=== PATIENT | male | born 1955 | race Caucasian/White ===

== ENCOUNTER 2019-01-07 07:04 | Inpatient (IN) | payer BC ==
[2019-01-07] VITALS (18 sets, daily range): BP systolic 112–172; BP diastolic 59–114
[~2019-01-07] VITALS: Ht 170.2 cm; Wt 105.9 kg
[~2019-01-07 07:04] MED LIST: FAMVIR500 MG OR; LISINOPRIL10 MG PO; LORTAB 5 OR; PRAVASTATIN20 MG OR; PROTONIX40 M2 OR
--- NOTE | 2019-01-07 07:05 | NUR ---
TO TX ROOM VIA W/C
--- NOTE | 2019-01-07 07:31 | NUR ---
PT MEDICATED WITH LABETALOL PER ORDER. PT BP 182/126, HR 116 SINUS TACH. PT DENIES ANY CHEST PAIN AT THIS TIME. PT AND AWARE OF PLAN OF CARE AND WAIT TIME. CALL GLASS WITHIN REACH.
[2019-01-07 07:32] LABS: HEMATOCRIT 46.3 % (39.0-50.0); HEMOGLOBIN 15.3 g/dl (14.0-18.0); IMMATURE GRANULOCYTES 0.7 % (0.0-5.0); MEAN CELL VOLUME 86.7 fL CALC (80.0-100.0); MEAN CORPUSCULAR HGB 28.7 pG CALC (26.0-32.0); NEUT# 6.79 thou/uL (1.82-7.42); RED BLOOD COUNT 5.34 mill/uL (4.70-6.10); RED CELL DISTRI WIDTH 14.4 % (11.5-15.5)
--- NOTE | 2019-01-07 07:37 | NUR ---
BP 153/98 AFTER MEDICATION. PT DENIES ANY SOB AT THIS TIME. BED PLACED IN SEMI-FOWLERS PER PT REQUEST.
[2019-01-07 07:42] LABS: ANION GAP 14 (6-22 (CALC)); BUN 27 mg/dL (8-23); BUN/CREATININE RATIO 21 (12-20 (CALC)); CARBON DIOXIDE 22 mmol/l (22-30); CHLORIDE 107 mmol/l (95-108); CREATININE 1.3 mg/dL (0.7-1.3); GFR 56 ML/MIN (>=60 (CALC)); GFR FOR AFR.AMER. > 60 ML/MIN (>=60 (CALC)); SODIUM 139 mmol/l (137-146)
[2019-01-07 07:43] LABS: POTASSIUM 3.9 mmol/l (3.5-5.1)
--- NOTE | 2019-01-07 08:20 | NUR ---
PT RESTING COMFORTABLY IN STRETCHER, RR 24 AT REST. PT REMAINS HYPERTENSIVE. AWARE.
--- NOTE | 2019-01-07 08:50 | NUR ---
PT REQUESTED TO AMBULATED TO THE BATHROOM FOR BM. PT AMBULATED WITH A STEADY GAIT. PT RR 28 AT THIS TIME, SAO2 97% ON ROOM AIR. URINE SAMPLE COLLECTED.
--- NOTE | 2019-01-07 09:00 | NUR ---
MD AT BEDSIDE TO DISCUSS RESULTS AND PLAN FOR ADMISSION.
--- NOTE | 2019-01-07 09:48 | NUR ---
NITRO TITRATED TO 10 MCG. PT DENIES ANY PAIN OR SOB AT THIS TIME.
[2019-01-07 09:54] LABS: URINE BLOOD DIPSTICK SMALL (NEGATIVE); URINE COLOR YELLOW; URINE GLUCOSE - DIPSTICK NEGATIVE (NEGATIVE); URINE KETONE NEGATIVE (NEGATIVE); URINE LEUK ESTERASE NEGATIVE (Negative); URINE NITRITE - DIPSTICK NEGATIVE (Negative); URINE PH 5.5 (4.5-8.0); URINE PROTEIN - DIPSTICK 100 mg/dL (NEG-TRACE); URINE SPECIFIC GRAVITY >=1.030
[2019-01-07 10:03] LABS: URINE BILIRUBIN - DIPSTICK SMALL (NEGATIVE); URINE CLARITY CLEAR
--- NOTE | 2019-01-07 10:05 | NUR ---
REPORT TO [facility].
--- NOTE | 2019-01-07 10:10 | NUR ---
PT REQUESTED TO TO TAKE PANTS AND SHOES OFF ONCE HE IS UPSTAIRS IN HIS ROOM.
--- NOTE | 2019-01-07 10:18 | NUR ---
Admission Note Report Given to: [facility] Transported by: Wheelchair X Stretcher Transported with: X Nurse Transporter X Patent IV O2 X Portable Canteen Operator PT TO ICU 4 IN STABLE CONDITION. CARE RELINQUISHED TO [facility].
--- NOTE | 2019-01-07 10:30 | NUR ---
PT ADMITTED TO ICU BED 6 VIA STRETCHER, PT STOOD AND TRANSFERRED SELF TO BED, PT ALERT AND ORIENTED AND AMBULATES WITH STRONG STEADU GAIT, RADIOLOGY AT BEDSIDE TO TAKE PT FOR CT THORAX ORDERED. VS OBTAINED THEN PT TO RADIOLOGY VIA WHEELCHAIR.
--- NOTE | 2019-01-07 10:45 | NUR ---
PT BACK FROM RADIOLOGY INTO BED WITH SAME STEADY GAIT, ADMISSION ASSESSMENT COMPLETED; SEE INTERVENTIONS, LUNGS CLEAR DIMINSHED IN BASES, EXERTIONAL DYSPNEA NOTED PT STATES HAS BEEN WORSENING OVER LAST FEW WEEKS, TRACED EDEMA NOTED TO BILATERAL ANKLES, ABD SOFT BS ACTIVE LAST BM THIS AM PER PT, SKIN WARM, DRY AND INTACT WITH NO BREAKDOWN NOTED, 20G IV ACCESS INTACT IN R AC WITH GOOD ASPIRATE NOTED, NS AT KVO AND NTG GTT AT 10MCG/MIN (INITIATED IN E.R.) BP ELEVATED BUT IMPROVED SINCE ARRIVAL TO E.R., TELE READING SR RATE IN THE 80'S WITH PVC'S, EKG ON CHART, ORIENTED TO ROOM AND UNIT, ALL MONITORING EQUIPMENT EXPLAINED PRIOR TO APPLICATION, CALL GLASS WITHIN REACH, SAFETY MEASURES INTRODUCED, EDUCATED PT REGARDING THE IMPORTANCE OF ACCURATE INTAKE AND OUTPUT RELATED TO DIAGNOSIS, URINAL PROVIDED, PT VERBALZIES UNDERSTANDING, WILL CONTINUE TO MONITOR.
--- NOTE | 2019-01-07 11:40 | NUR ---
INTO SEE PATIENT PLAN OF CARE DISCCUSSED, PT EDUCATED REGARDING NEW MEDICATIONS, ORDERED THORACENTESIS, PLAN OF CARE AND DIURETIC THERAPY, CALL GLASS; REMAINS WITHIN REACH, WILL CONTINUE TO MONITOR. AT BEDSIDE
--- NOTE | 2019-01-07 13:00 | NUR ---
NTG GTT OFF AT THIS TIME, SEE INTERVENTIONS FOR VS.
--- NOTE | 2019-01-07 13:05 | NUR ---
LOVENOX HELD FOR PLANNED THORACENTESIS, PT TO RADIOLOGY VIA W/C, REMAINS AT BEDSIDE
--- NOTE | 2019-01-07 13:22 | NUR ---
CALL INTO DIEATRY TO REQUEST REP FOR MEAL CHOICE SELECTIONS
--- NOTE | 2019-01-07 13:30 | NUR ---
PT BACK FROM RADIOLOGY, THORACENTESIS NOT PERFORMED RELATED TO LOW VOLUME. PT BACK TO BED, TOLERATED WELL.
[2019-01-07 13:44] LABS: URINE EPITHELIAL CELLS FEW EPI/hpf (0-FEW); URINE MUCUS MODERATE hpf (NONE-FEW); URINE RBC 0-2 RBC/hpf (0-5)
--- NOTE | 2019-01-07 14:45 | NUR ---
PT RESTING INBED, VS REMAIN STABLE PT AFEBRILE, CALL GLASS WITHIN REACH, REMAINS AT BEDSIDE, WILL CONTINUE TO MONITOR.
--- NOTE | 2019-01-07 16:09 | NUR ---
PT RESTING , REMAINS AT BEDSIDE, OFFERS NO COMPLAINTS OF PAIN, NO SOB OR DISTRESS NOTED AT REST, WILL CONTINUE TO MONITOR.
--- NOTE | 2019-01-07 16:20 | NUR ---
VISITOR AT BEDSIDE, GONE AT THIS TIME, SPOUSE REMAINS WITH PATIENT
--- NOTE | 2019-01-07 17:40 | NUR ---
PT AMBULATED TO BATHROOM WITH STRONG STEADY GAIT. REMAINS AT BEDSIDE, GUEST TRAY PROVIDED FOR SPOUSE, CALL GLASS WITHIN REACH.
--- NOTE | 2019-01-07 18:00 | NUR ---
PT CONTINENT OF MOD BR BM FORMED, BACK TO BED AND ALL MONTIORING EQUIPMENT REAPPLIED, REMAINS AT BEDSIDE, SET UP ASSIST PROVIDED FOR PM MEAL, INTO SEE PATIENT, NEW ORDERS REC'D.
--- NOTE | 2019-01-07 18:18 | NUR ---
B/P SLIGHTYL ELEVATED MEDICATED ORDERED WITH HYDRAALAZIN WILL [place] EFFICACY. CALL GLASS WITHIN REACH
--- NOTE | 2019-01-07 18:41 | NUR ---
PT COMPLAINS OF FEELING FLUSHED AND LIGHT HEADED SINCE HYDRALAZINE MEDICATION BP 170/100, WILL CONTINUE TO MONITOR.
--- NOTE | 2019-01-07 19:10 | NUR ---
awake. no obvious distress but does admit anxiety d/t admission. cardiac specialist shows sinus rhythm pacs ivcd. #20 rac saline lock. voids per urinal. fall precautions cont.
--- NOTE | 2019-01-07 22:00 | NUR ---
awake. denies distress. cardiac/vascular sonographer shows sinus rhythm.
[2019-01-08] VITALS (8 sets, daily range): BP systolic 14–156; BP diastolic 65–100
--- NOTE | 2019-01-08 00:01 | NUR ---
eyes closed. no distress. cardiac monitor technician shows sinus rhythm pvcs. ectopy has lessoned.
--- NOTE | 2019-01-08 00:55 | NUR ---
awake. denies distress. xanax 0.25mg po given.
--- NOTE | 2019-01-08 02:00 | NUR ---
resting quietly. no apparent distress. monitoring manager shows sinus rhythm occas pvcs.
--- NOTE | 2019-01-08 05:00 | NUR ---
lab here. blood drawn.
[2019-01-08 06:25] LABS: HEMATOCRIT 41.7 % (39.0-50.0); HEMOGLOBIN 14.1 g/dl (14.0-18.0); IMMATURE GRANULOCYTES 1.6 % (0.0-5.0); MEAN CORPUSCULAR HGB 29.1 pG CALC (26.0-32.0); MEAN CORPUSCULAR HGB CONC 33.8 g/L CALC (32.0-36.0); NEUT# 7.37 thou/uL (1.82-7.42); RED BLOOD COUNT 4.85 mill/uL (4.70-6.10); RED CELL DISTRI WIDTH 14.5 % (11.5-15.5)
[2019-01-08 06:48] LABS: ALBUMIN 3.6 g/dL (3.2-5.0); ALKALINE PHOSPHATASE 64 u/l (38-126); AMYLASE < 30 u/l (30-110); ANION GAP 12 (6-22 (CALC)); BUN 23 mg/dL (8-23); BUN/CREATININE RATIO 18 (12-20 (CALC)); CALCULATED LDLCHOLESTEROL 120 mg/dL (62-129 (CALC)); CARBON DIOXIDE 25 mmol/l (22-30); CHLORIDE 105 mmol/l (95-108); CHOLESTEROL HDL RATIO 3.7 (<4.4 (CALC)); CREATININE 1.3 mg/dL (0.7-1.3); GFR 56 ML/MIN (>=60 (CALC)); GFR FOR AFR.AMER. > 60 ML/MIN (>=60 (CALC)); HDL CHOLESTEROL 50 mg/dL (>=40); LIPASE 100 u/l (23-300); POTASSIUM 3.9 mmol/l (3.5-5.1); SGOT/AST 22 u/l (19-48); SODIUM 138 mmol/l (137-146); TOTAL CHOLESTEROL 187 mg/dl (0-199); TOTAL PROTEIN 6.1 g/dL (6.3-8.2); TOTAL TRIGLYCERIDES 80 mg/dl (30-149); VLDL CHOLESTROL 16 mg/dl (4-45 (CALC))
--- NOTE | 2019-01-08 07:35 | NUR ---
PT RESTING IN BED, ALERT AND ORIENTED, AM ASSESSMENT COMPLETED SEE INTERVENTIONS, SKIN WARM AND DRY WITH NO BREAKDOWN NOTED, ABD SOFT BS ACTIVE, LAST BM YESTERDAY X 2, TAKES PO MEDICATIONS W/O INCIDENT, BP IMPROVED SEE INTERVENTIONS REMAINS AT BEDSIDE, CALL GLASS WITHIN REACH, WILL CONTINUE TO MONITOR.
--- NOTE | 2019-01-08 07:45 | NUR ---
SET UP ASSIST PROVIDED FOR AM MEAL, REMAINS AT BEDSIDE, CALL GLASS WITHIN REACH.
[2019-01-08 08:01] LABS: TSH, 3RD GENERATION 1.42 uIU/mL (0.47 - 4.68)
--- NOTE | 2019-01-08 09:40 | NUR ---
IN TO SEE PATIENT, PLAN OF CARE DISCUSSED
[2019-01-08] MEDS ORDERED: LOSARTAN POT50 MG PO (10:02)
[2019-01-08] MEDS ORDERED: CARVEDILOL25 MG PO (10:02)
[2019-01-08] MEDS ORDERED: COZAAR25 MG PO (10:03)
[2019-01-08] MEDS ORDERED: DOXYCYCL HYC100 MG PO (10:03)
--- NOTE | 2019-01-08 10:03 | NUR ---
PT AMBULATING AROUND UNTI ON ROOM WITH STAND BY ASSIST, AND STRONG STEADY GAIT, MONITORING O2 SATURATION DURING AMBULATION
[2019-01-08] MEDS ORDERED: BUMETANIDE1 MG PO (10:05)
--- NOTE | 2019-01-08 10:46 | NUR ---
PLANNED D/C TODAY AFTER ECHO COMPLETED IF POSSIBLE, PT AWARE OF POC.
--- NOTE | 2019-01-08 12:43 | NUR ---
TO ULTRASOUND FOR ECHO ORDERED.
--- NOTE | 2019-01-08 13:30 | NUR ---
PT BACK FROM RADIOLOGY, PLANNED D/S TODAY; REMAINS AT BEDSIDE, CALL GLASS WITH IN REACH, WILL CONTINUE TO MONITOR.
--- NOTE | 2019-01-08 13:55 | NUR ---
Discharge instructions given. Patient verbalizes understanding of same. Discharged in stable condition via Stretcher to Home with spouse. All belongings sent with pt. SCRIPTS GIVEN TO PT/SPOUSE.
== END 2019-01-08 13:55 | disposition home or self-care (01) | DRG 292 ==
LOC: ED 07:04 → ED-I 08:44 → ED 08:56 → ICU 08:57
PROVIDERS: Family Medicine; Internal Medicine; ADMIT Internal Medicine Nephrology; ATTEND Internal Medicine Nephrology
PROC: 3E0234Z Introduction of Serum, Toxoid and Vaccine into Muscle, Percutaneous Approach (ICD-10-PCS; principal; 2019-01-08)
PROC: 3E02340 Introduction of Influenza Vaccine into Muscle, Percutaneous Approach (ICD-10-PCS; 2019-01-08)
DX: I11.0 Hypertensive heart disease with heart failure (principal); I16.1 Hypertensive emergency; J91.8 Pleural effusion in other conditions classified elsewhere; I50.23 Acute on chronic systolic (congestive) heart failure; J20.9 Acute bronchitis, unspecified; E66.9 Obesity, unspecified; Z23 Encounter for immunization; Z87.891 Personal history of nicotine dependence; Z68.38 Body mass index [BMI] 38.0-38.9, adult
CPT/HCPCS: J1650

== ENCOUNTER 2019-10-27 05:06 | Observation (INO) | payer BC ==
[~2019-10-27] VITALS: Ht 172.7 cm; Wt 109.2 kg
[~2019-10-27 05:06] MED LIST changes: +BAYER ASPIRIN E81 MG PO; +BUMETANIDE1 MG PO; +CARVEDILOL25 MG PO; +COREG12.5 MG PO; +COZAAR25 MG PO; +DOXYCYCL HYC100 MG PO; +ENTRESTO 24-261 TAB PO; +LIPITOR10 M1 PO; +LOSARTAN POT50 MG PO; +OMEPRAZOLE20 M2 PO
--- NOTE | 2019-10-27 05:19 | NUR ---
PT. C/O ELEVATED ALYSSA ALL MORNING LONG. BP 175/111 HR 60.
--- NOTE | 2019-10-27 06:06 | NUR ---
PO ANTIHYPERTENSIVE GIVEN PER MD ORDER.
[2019-10-27 06:40] LABS: HEMATOCRIT 46.2 % (39.0-50.0); HEMOGLOBIN 15.3 g/dl (14.0-18.0); MEAN CELL VOLUME 88.7 fL CALC (80.0-100.0); MEAN CORPUSCULAR HGB 29.4 pG CALC (26.0-32.0); MEAN CORPUSCULAR HGB CONC 33.1 g/L CALC (32.0-36.0); NEUT# 5.71 thou/uL (1.82-7.42); RED BLOOD COUNT 5.21 mill/uL (4.70-6.10); RED CELL DISTRI WIDTH 13.9 % (11.5-15.5)
--- NOTE | 2019-10-27 06:46 | NUR ---
REPORT TO GISEL ALONZO.
--- NOTE | 2019-10-27 06:50 | NUR ---
PT RESTING QUIETLY ON STRETCHER, DENIES ANY CHEST PAIN, DENIES ANY SOB, JUST SLIGHT HEADACHE. B/P REMAINS HIGHER THAN PTS NORMAL. DR. DAVIDSON NOTIFIED AND WILL GIVE ANOTHER DOSE OF CATAPRESS.
[2019-10-27 06:59] LABS: ALBUMIN 4.3 g/dL (3.2-5.0); ALKALINE PHOSPHATASE 88 u/l (38-126); ANION GAP 12 (6-22 (CALC)); BUN 23 mg/dL (8-23); BUN/CREATININE RATIO 17 (12-20 (CALC)); CARBON DIOXIDE 26 mmol/l (22-30); CHLORIDE 105 mmol/l (95-108); CREATININE 1.4 mg/dL (0.7-1.3); GFR 51 ML/MIN (>=60 (CALC)); GFR FOR AFR.AMER. > 60 ML/MIN (>=60 (CALC)); SGOT/AST 26 u/l (19-48); SODIUM 139 mmol/l (137-146)
[2019-10-27 07:00] LABS: BILIRUBIN, TOTAL 0.5 mg/dL (0.0-1.4); TOTAL PROTEIN 7.7 g/dL (6.3-8.2)
[2019-10-27 07:10] LABS: MYOGLOBIN 40 ng/mL (0 - 121)
--- NOTE | 2019-10-27 07:38 | NUR ---
DR. DAVIDSON SPEAKING WITH PT ABOUT POSSIBLE ADMISSION FOR OBSERVATION DUE TO SOME SLIGHT CHANGES ON EKG FROM LAST EKG.
--- NOTE | 2019-10-27 09:26 | NUR ---
PT RESTING QUIETLY ON STRETCHER, VSS AT THIS TIME
[2019-10-27 10:00] VITALS: BP 137/88
--- NOTE | 2019-10-27 10:46 | NUR ---
REPORT CALLED TO [facility] AND PT TAKEN TO FLOOR PER W/C AND TELEMENTRY
[2019-10-27] MEDS ORDERED: CLONIDINE0.1 MG PO (13:21)
[2019-10-27 13:40] LABS: MAGNESIUM 2.1 mg/dL (1.6-2.3)
--- NOTE | 2019-10-27 15:45 | NUR ---
Discharge instructions given. Patient verbalizes understanding of same. Discharged in stable condition via Ambulatory to Home with spouse. All belongings sent with pt.
--- NOTE | 2019-10-27 16:09 | NUR ---
RIGHT IV SITE DISCONTINUED. IV TIP INTACT. PATIENT TOLERATED WELL. NO COMPLAINTS OF PAIN. PRESSURE DRESSING APPLIED. INSTRUCTIONS GIVEN TO PATIENT ON MAINTAINING SITE. PATIENT VERBALIZED UNDERSTANDING.
== END 2019-10-27 13:40 | disposition home or self-care (01) | DRG 305 ==
LOC: ED 05:06 → ED-I 07:37 → ED 07:50 → ED-I 07:51 → MS2 09:30
PROVIDERS: Emergency Medicine; Nurse Practitioner Family; ADMIT Internal Medicine; ATTEND Internal Medicine
DX: I16.0 Hypertensive urgency (principal); I11.0 Hypertensive heart disease with heart failure; I50.9 Heart failure, unspecified; R94.31 Abnormal electrocardiogram [ECG] [EKG]; E78.5 Hyperlipidemia, unspecified; Z87.891 Personal history of nicotine dependence
CPT/HCPCS: G0378